=== PATIENT | male | born 1960 | race Caucasian/White ===

== ENCOUNTER → 2017-03-15 | Day surgery (SDC) | payer OTHER ==
[~2017-03-15] MED LIST: Lactated Ringer's 500 ML IV ONE
[2017-03-15 07:01] VITALS: BMI 28.3
--- NOTE | 2017-03-15 08:15 | CP.SDSHP ---
Same Day Surgery H & P - History Proposed Procedure: colonosocpy Pre-Op Diagnosis: rectal bleed - Allergies Allergies: Allergies No Known Allergies Allergy (Unverified 03/02/14 04:35) - Physical Exam Vital Signs: Vital Signs 03/15/17 07:01 Temperature 97.8 F Pulse Rate 63 Respiratory 18 Rate Blood Pressure 102/65 O2 Sat by Pulse 98 Oximetry Mental Status: Alert & Oriented x3 Neuro: WNL Heart: WNL Lungs: WNL GI: WNL - Impression Impression: rectal bleeding Pt. Evaluated Today:Candidate for Anesthesia & Procedure: Yes - Date & Time Date: 03/15/17 Time: 08:00 Short Stay Discharge - Short Stay Discharge Admitting Diagnosis/Reason for Visit: RECTAL BLEEDING Disposition: HOME/ ROUTINE
[2017-03-15 08:50] VITALS: TEMP 97
[2017-03-15 09:14] VITALS: PULSE 51
[2017-03-15 09:15] VITALS: RESP 15
[2017-03-15 09:38] VITALS: BP 99/63; O2SAT 98
== END | disposition home or self-care (01) ==
LOC: C.ENDO 06:40
PROVIDERS: ATTEND Internal Medicine Gastroenterology
DX: D12.0 Benign neoplasm of cecum (principal); K62.5 Hemorrhage of anus and rectum; K64.8 Other hemorrhoids
CPT/HCPCS: 45388; 88305; J7120